=== PATIENT | male | born 1945 | race Caucasian/White ===

== ENCOUNTER 2019-03-04 10:30 | Day surgery (SDC) | payer MEDICARE ==
[~2019-03-04] VITALS: Ht 162.6 cm; Wt 71.7 kg
[~2019-03-04 10:30] MED LIST: AMLO10TA PO; AMLO5TAB6 PO; GABA-843 PO; HYDR-3716 PO; HYDR-3719 PO; KRIL1000 PO; LIDOCAINE 2% INJ 100 MG/5 ML SDV (FOR ANES.) As Ordered ONE; LISI20TA20 PO; LOSA50TA5 PO; MELA3TAB49 PO; NS 1,000 ML IV ONE; OCUVCAP2 PO; PROPOFOL 200 MG/20 ML VIAL As Ordered ONE; [UNRECOGNIZED DRUG - OTHER] PO
--- NOTE | 2019-03-04 12:00 | ROOR ---
Patient Name: Dimitri Sanchez Procedure Date: 03/04/2019 11:44 AM Date of : 1945 Age: 73 Room: [facility] Gender: Male Note Status: Finalized Procedure: Colonoscopy to 25 cms (POOR PREP) Indications: Screening for colorectal malignant neoplasm Providers: Napoleon Carbajal MD Referring MD: AMBER Flores Requesting Provider: Medicines: Monitored Anesthesia Care Complications: No immediate complications. Procedure: Pre-Anesthesia Assessment: - The heart rate, respiratory rate, oxygen saturations, blood pressure, adequacy of pulmonary ventilation, and response to care were monitored throughout the procedure. The Colonoscope was introduced through the anus with the intention of advancing to the cecum. The scope was advanced to the sigmoid colon before the procedure was aborted. Medications were given. The colonoscopy was performed without difficulty. The patient tolerated the procedure well. The quality of the bowel preparation was inadequate. Findings: The perianal and digital rectal examinations were normal. Non-bleeding internal hemorrhoids were found during retroflexion. The hemorrhoids were small and Grade I (internal hemorrhoids that do not prolapse). A large amount of extensive amounts of stool was found in the recto-sigmoid colon. The exam was otherwise without abnormality. Impression: - Preparation of the colon was inadequate. - Non-bleeding internal hemorrhoids. - Stool in the recto-sigmoid colon. - The examination was otherwise normal. - No specimens collected. - The exam was suboptimal due to patient preparation. - The procedure was aborted due to inadequate bowel prep. Recommendation: - Discharge patient to home. - Resume previous diet. - Continue present medications. - Repeat colonoscopy at appointment to be scheduled because the bowel preparation was poor. - Return to referring physician. - The findings and recommendations were discussed with the patient's family. Napoleon Carbajal MD Napoleon Carbajal MD 03/04/2019 11:59:42 AM Electronically signed by Napoleon Carbajal MD Number of Addenda: 0 Note Initiated On: 03/04/2019 11:44 AM Estimated Blood Loss: Estimated blood loss: none.
[2019-03-04 12:20] VITALS: BP 128/77
== END 2019-03-04 12:31 | disposition home or self-care (01) ==
LOC: M OPP 10:30
PROVIDERS: ATTEND Internal Medicine Gastroenterology
DX: Z12.11 Encounter for screening for malignant neoplasm of colon (principal); K64.0 First degree hemorrhoids; Z53.8 Procedure and treatment not carried out for other reasons